=== PATIENT | female | born 1975 | race Caucasian/White ===

== ENCOUNTER 2016-08-17 15:23 | Emergency (ER) | payer OTHER | END 2016-08-17 16:30 | disposition home or self-care (01) | LOC: ER1 15:23 | DX: M25.512 Pain in left shoulder (principal) | CPT/HCPCS: 96372; 99283; J1100; J1885 ==

== ENCOUNTER → 2021-10-09 | Outpatient (CLI) | payer OTHER ==
[~2021-10-09] MED LIST: CLARITIN 10MG T10 MG PO; CYCLOBENZAPRINE5 MG PO; HYDROXYZINE HCL50 MG PO; IMODIUM CAP 2 MG2 MG PO; LEVAQUIN500 MG PO; PHENERGAN 25 MG25 M1 PO; PRILOSEC OTC20 MG PO; PROBIOTIC1 EAC1 PO; ULTRAM50 MG PO; ZOFRAN ODT 4 MG4 MG SL
== END ==
LOC: NM 08:30
DX: C50.512 Malignant neoplasm of lower-outer quadrant of left female breast (principal); Z80.3 Family history of malignant neoplasm of breast; Z80.0 Family history of malignant neoplasm of digestive organs; Z15.01 Genetic susceptibility to malignant neoplasm of breast; N63.20 Unspecified lump in the left breast, unspecified quadrant
CPT/HCPCS: 71260; 78306; A9503; Q9967